=== PATIENT | female | born 1955 | race Caucasian/White ===

== ENCOUNTER 2017-03-05 07:29 | Day surgery (SDC) | payer BC ==
[2017-02-28 10:18] VITALS: BMI 40.4
[~2017-03-05 07:29] MED LIST: LACTATED RINGERS 1,000 ML IV SCH; LIDOCAINE 1% 20 ML VIAL (10MG/ML) FOR IV START INTRADERMA PRN
[2017-03-05 07:44] VITALS: TEMP 96.8
[2017-03-05] MEDS ORDERED: LIDOCAINE 1% INJ 10MG/ML (20 ML MDV) ONE (07:54)
[2017-03-05] MEDS ORDERED: PROPOFOL 10 MG/ML 20 ML VIAL IV ONE (07:54)
[2017-03-05 08:24] VITALS: RESP 16
--- NOTE | 2017-03-05 08:24 | P.OP ---
Date of Procedure: 03/05/17 Preoperative Diagnosis: Screening colonoscopy prior polyp Postoperative Diagnosis: Moderate sigmoid diverticuli, internal hemorrhoids, external anterior hemorrhoid Procedure(s) Performed: Colonoscopy Anesthesia: MAC Surgeon: Leslie Hernandez Estimated Blood Loss (ml): 0 IV fluids (ml): 500 Pathology: none sent Condition: stable Disposition: PACU Indications for Procedure: Screening colonoscopy last scope 2009 Operative Findings: Moderate sigmoid diverticuli, internal hemorrhoids, external anterior hemorrhoidal complex Description of Procedure: Patient was taken to the endoscopy suite and following sedation rectal exam was performed. Patient was noted to have good sphincter tone and anterior external hemorrhoid complex. Colonoscope was passed through the anus into the rectum. It was passed through the sigmoid colon up to the splenic flexure. It was passed through the transverse colon, hepatic flexure, right colon down to the area of the cecum. Circumferential observation of the mucosa did not reveal any specific lesions of concern. A questionable small mucosal polyp was identified in the area of the cecum but was not seen again. No further lesions of concern were noted in the right colon or the transverse colon. No lesions of concern in the left colon. Moderate sigmoid diverticuli noted in the sigmoid colon. Scope was brought down into the rectum where it was retroflexed. Internal hemorrhoids identified. As the scope was withdrawn no other lesions of concern were identified. Approximately 6 minutes were taken to withdraw the scope from the area of the cecum to the rectum. Impression/plan: 1. Moderate sigmoid diverticuli 2. Internal hemorrhoids 3. Anterior external skin tag 4. Questionable small mucosal change in the cecum questionable suction change Plan: 1. Conservative management of diverticuli and hemorrhoids 2. Repeat scope in 3-5 years to follow cecal area
--- NOTE | 2017-03-05 08:25 | P.DS ---
Providers Attending physician: Leslie Hernandez Primary care physician: Callum Mckay Plan - Discharge Summary Discharge Medication List Albuterol Sulfate [Ventolin HFA] 2 puff INHALATION Q6HR PRN 02/28/17 [History] Montelukast [Singulair] 10 mg PO DAILY 02/28/17 [History] Olopatadine HCl [Patanol] 1 drop BOTH EYES DAILY PRN 02/28/17 [History] Activity/Diet/Wound Care/Special Instructions: diverticular diet Discharge Disposition: HOME SELF-CARE
[2017-03-05 08:54] VITALS: BP 142/77; PULSE 80
== END 2017-03-05 09:41 | disposition home or self-care (01) ==
LOC: ORWHC2ENDO 07:29
PROVIDERS: ATTEND Surgery
DX: Z12.11 Encounter for screening for malignant neoplasm of colon (principal); Z86.010 Personal history of colon polyps; K57.30 Diverticulosis of large intestine without perforation or abscess without bleeding; K64.8 Other hemorrhoids; K64.4 Residual hemorrhoidal skin tags; J45.909 Unspecified asthma, uncomplicated; Z79.899 Other long term (current) drug therapy; Z88.1 Allergy status to other antibiotic agents; Z88.5 Allergy status to narcotic agent; Z88.0 Allergy status to penicillin; Z88.2 Allergy status to sulfonamides; Z88.8 Allergy status to other drugs, medicaments and biological substances
CPT/HCPCS: J2001; J2704; G0105

== ENCOUNTER → 2017-03-06 | Outpatient (CLI) | payer BC | END | disposition home or self-care (01) | LOC: CPPFTMAIN 13:28 | PROVIDERS: ATTEND Family Medicine | DX: J98.8 Other specified respiratory disorders (principal) | CPT/HCPCS: 94060; 94726; 94729 ==

== ENCOUNTER → 2017-06-20 | Outpatient (CLI) | payer BC ==
--- NOTE | 2017-06-20 10:22 | US ---
EXAMINATION TYPE: US venous doppler duplex LE RT DATE OF EXAM: 06/20/2017 9:47 AM COMPARISON: Prior bilateral lower extremity venous ultrasound November 10, 2014 CLINICAL HISTORY: M79.661 Pain in right lower leg. no prev dvt SIDE PERFORMED: right TECHNIQUE: The lower extremity deep venous system is examined utilizing real time linear array sonog treasure with graded compression, doppler sonography and color-flow sonography. VESSELS IMAGED: External Iliac Vein (EIV) Common Femoral Vein Deep Femoral Vein Femoral Vein Popliteal Vein Proximal Calf Veins Grayscale, color doppler, spectral doppler imaging performed of the deep veins of the right lower ext remity. There is normal flow, compressibility, vascular waveforms. Right Leg: neg for DVT Results called to Ibis in the office at the time of the exam. IMPRESSION: No ultrasound evidence for acute DVT in the right lower extremity.
== END | disposition home or self-care (01) ==
LOC: RADUSWWP 09:34
PROVIDERS: ATTEND Family Medicine
DX: M79.661 Pain in right lower leg (principal)

== ENCOUNTER 2018-03-25 12:02 | Emergency (ER) | payer BC ==
[2018-03-25] MEDS ORDERED: IPRATROPIUM 0.5 MG/2.5 ML NEBU INHALATION STA (12:41)
[2018-03-25] MEDS ORDERED: DEXAMETHASONE SOD PHOSPHATE 10 MG/ML 1 ML VIAL IV STA (12:41)
[2018-03-25] MEDS ORDERED: ALBUTEROL NEBULIZED 2.5 MG/3 ML INHALATION STA (12:41)
--- NOTE | 2018-03-25 13:03 | ED ---
General Adult HPI - General Chief complaint: Upper Respiratory Infection Stated complaint: SOB & ankle pain Time Seen by Provider: 03/25/18 12:35 Source: patient, RN notes reviewed Mode of arrival: ambulatory Limitations: no limitations - History of Present Illness Initial comments: 62-year-old female presenting for evaluation of cough for the past 2 weeks. Patient has had nasal congestion. She has had intermittent fevers and chills. T-max at home was 100. Symptoms have been progressive over the past 2 weeks. She did note that she has been dealing with URI symptoms for the past one month but this course seems to be approximately 2 weeks in length. She was given albuterol and Levaquin by her primary care physician. She has completed her course of Levaquin. Denies chest pain. She states she some mild dyspnea associated with her cough. Cough is productive of white sputum. No abdominal pain. No nausea vomiting. No orthopnea, no PND. - Related Data Home Medications Medication Instructions Recorded Confirmed Albuterol Sulfate [Ventolin HFA] 2 puff INHALATION RT-QID PRN 02/28/17 03/25/18 Montelukast [Singulair] 10 mg PO DAILY 02/28/17 03/25/18 Olopatadine HCl [Patanol] 1 drop BOTH EYES BID PRN 02/28/17 03/25/18 Azelastine HCl 2 sprays EA NOSTRIL BID 03/25/18 03/25/18 Ipratropium-Albuterol Nebulize 3 ml INHALATION RT-QID 03/25/18 03/25/18 [Duoneb 0.5 mg-3 mg/3 ml Soln] Previous Rx's Medication Instructions Recorded Doxycycline Monohydrate [Monodox] 100 mg PO Q12HR #20 cap 03/25/18 methylPREDNISolone Dose Pack 4 mg PO DIRECTED #21 package 03/25/18 [Medrol Dose Pack] Allergies Allergy/AdvReac Type Severity Reaction Status Date / Time aspirin Allergy Unknown Rash/Hives Verified 03/25/18 13:16 azithromycin Allergy Unknown Rash/Hives Verified 03/25/18 13:16 [From Zithromax Z-Shawn] codeine Allergy Unknown Rash/Hives/ Verified 03/25/18 13:16 NAUSEA,VOMI TING erythromycin base Allergy Unknown Rash/Hives Verified 03/25/18 13:16 [From E-Mycin] meperidine HCl [From Demerol] Allergy Unknown Rash/Hives Verified 03/25/18 13:16 Penicillins Allergy Unknown Rash/Hives Verified 03/25/18 13:16 ibuprofen Allergy Rash/Hives Verified 03/25/18 13:16 Sulfa (Sulfonamide Allergy Rash/Hives Verified 03/25/18 13:16 Antibiotics) hydrocodone bitartrate AdvReac Unknown Rash/Hives Verified 03/25/18 13:16 [From Vicodin] Review of Systems ROS Statement: Those systems with pertinent positive or pertinent negative responses have been documented in the HPI. ROS Other: All systems not noted in ROS Statement are negative. Past Medical History Past Medical History: Asthma Additional Past Medical History / Comment(s): SEASONAL ALLERGIES, CURRENT NASAL CONGESTION, HX OF COLON POLYP History of Any Multi-Drug Resistant Organisms: None Reported Past Surgical History: Hernia Repair, Joint Replacement, Orthopedic Surgery Additional Past Surgical History / Comment(s): ABDOMINAL HERNIA REPAIR X2, RT KNEE ARTHROSCOPY, RIGHT KNEE PARTIAL REPLACEMENT, LEFT TOTAL KNEE REPLACEMENT Past Anesthesia/Blood Transfusion Reactions: Previous Problems w/ Anesthesia Additional Past Anesthesia/Blood Transfusion Reaction / Comment(s): STATES HAD ISSUES WITH LOW B/P X2 AFTER KNEE SX Past Psychological History: No Psychological Hx Reported Smoking Status: Never smoker Past Alcohol Use History: None Reported Past Drug Use History: None Reported - Past Family History Mother Family Medical History: Unable to Obtain Additional Family Medical History / Comment(s): PATIENT ADOPTED General Exam Limitations: no limitations General appearance: alert, in no apparent distress Head exam: Present: atraumatic, normocephalic Eye exam: Present: normal appearance, PERRL ENT exam: Absent: normal exam (Nasal congestion, rhinorrhea) Neck exam: Present: normal inspection. Absent: tenderness, meningismus Respiratory exam: Present: wheezes, rhonchi. Absent: respiratory distress Cardiovascular Exam: Present: regular rate, normal rhythm GI/Abdominal exam: Present: soft. Absent: distended, tenderness Extremities exam: Present: pedal edema (Right lower extremity pedal edema). Absent: calf tenderness Neurological exam: Present: alert, oriented X3, CN II-XII intact. Absent: motor sensory deficit Psychiatric exam: Present: normal affect, normal mood Skin exam: Present: warm, dry, intact. Absent: cyanosis, diaphoretic Course Vital Signs 03/25/18 03/25/18 03/25/18 12:26 12:49 12:53 Temperature 98.7 F Pulse Rate 81 104 H Respiratory 18 20 Rate Blood Pressure 128/79 O2 Sat by Pulse 98 Oximetry 03/25/18 03/25/18 03/25/18 13:15 13:20 14:21 Temperature 98.6 F Pulse Rate 111 H 90 105 H Respiratory 18 18 Rate Blood Pressure 135/85 106/62 O2 Sat by Pulse 99 96 Oximetry Medical Decision Making - Medical Decision Making 62-year-old female with 2 weeks of cough and congestion. Patient's symptoms do sound infectious, however she was complaining of right lower extremity swelling , ultrasound was obtained this is negative for DVT, as well as laboratory studies obtained including CBC which is unremarkable normal white blood cell count stable hemoglobin, negative BNP and troponin, CMP is within normal limits influenza is negative. Chest x-ray negative for focal pneumonia. Patient's symptoms related to bronchitis. She will be started on azithromycin and a short course of steroids. Follow-up with primary care physician return with worsening symptoms. - Lab Data Result diagrams: 03/25/18 12:55 03/25/18 12:55 Lab Results 03/25/18 03/25/18 03/25/18 Range/Units 12:55 12:55 12:55 WBC 7.9 (3.8-10.6) k/uL RBC 4.99 (3.80-5.40) m/uL Hgb 14.9 (11.4-16.0) gm/dL Hct 43.5 (34.0-46.0) % MCV 87.1 (80.0-100.0) fL MCH 29.8 (25.0-35.0) pg MCHC 34.2 (31.0-37.0) g/dL RDW 13.4 (11.5-15.5) % Plt Count 323 (150-450) k/uL Neutrophils % 60 % Lymphocytes % 22 % Monocytes % 8 % Eosinophils % 7 % Basophils % 0 % Neutrophils # 4.7 (1.3-7.7) k/uL Lymphocytes # 1.7 (1.0-4.8) k/uL Monocytes # 0.6 (0-1.0) k/uL Eosinophils # 0.5 (0-0.7) k/uL Basophils # 0.0 (0-0.2) k/uL PT (9.0-12.0) sec INR (<1.2) APTT (22.0-30.0) sec Sodium 140 (137-145) mmol/L Potassium 4.3 (3.5-5.1) mmol/L Chloride 103 (98-107) mmol/L Carbon Dioxide 25 (22-30) mmol/L Anion Gap 12 mmol/L BUN 13 (7-17) mg/dL Creatinine 0.47 L (0.52-1.04) mg/dL Est GFR (CKD-EPI)AfAm >90 (>60 ml/min/1.73 sqM) Est GFR (CKD-EPI)NonAf >90 (>60 ml/min/1.73 sqM) Glucose 100 H (74-99) mg/dL Calcium 9.1 (8.4-10.2) mg/dL Magnesium 2.0 (1.6-2.3) mg/dL Total Bilirubin 0.6 (0.2-1.3) mg/dL AST 20 (14-36) U/L ALT 30 (9-52) U/L Alkaline Phosphatase 128 H (38-126) U/L Troponin I (0.000-0.034) ng/mL NT-Pro-B Natriuret Pep 45 pg/mL Total Protein 6.7 (6.3-8.2) g/dL Albumin 3.9 (3.5-5.0) g/dL Influenza Type A RNA (Not Detectd) Influenza Type B (PCR) (Not Detectd) 03/25/18 03/25/18 03/25/18 Range/Units 12:55 12:55 13:15 WBC (3.8-10.6) k/uL RBC (3.80-5.40) m/uL Hgb (11.4-16.0) gm/dL Hct (34.0-46.0) % MCV (80.0-100.0) fL MCH (25.0-35.0) pg MCHC (31.0-37.0) g/dL RDW (11.5-15.5) % Plt Count (150-450) k/uL Neutrophils % % Lymphocytes % % Monocytes % % Eosinophils % % Basophils % % Neutrophils # (1.3-7.7) k/uL Lymphocytes # (1.0-4.8) k/uL Monocytes # (0-1.0) k/uL Eosinophils # (0-0.7) k/uL Basophils # (0-0.2) k/uL PT 9.7 (9.0-12.0) sec INR 1.0 (<1.2) APTT 22.7 (22.0-30.0) sec Sodium (137-145) mmol/L Potassium (3.5-5.1) mmol/L Chloride (98-107) mmol/L Carbon Dioxide (22-30) mmol/L Anion Gap mmol/L BUN (7-17) mg/dL Creatinine (0.52-1.04) mg/dL Est GFR (CKD-EPI)AfAm (>60 ml/min/1.73 sqM) Est GFR (CKD-EPI)NonAf (>60 ml/min/1.73 sqM) Glucose (74-99) mg/dL Calcium (8.4-10.2) mg/dL Magnesium (1.6-2.3) mg/dL Total Bilirubin (0.2-1.3) mg/dL AST (14-36) U/L ALT (9-52) U/L Alkaline Phosphatase (38-126) U/L Troponin I <0.012 (0.000-0.034) ng/mL NT-Pro-B Natriuret Pep pg/mL Total Protein (6.3-8.2) g/dL Albumin (3.5-5.0) g/dL Influenza Type A RNA Not Detected (Not Detectd) Influenza Type B (PCR) Not Detected (Not Detectd) Disposition Clinical Impression: Bronchitis Disposition: HOME SELF-CARE Condition: Fair Instructions: Upper Respiratory Infection (ED), Acute Bronchitis (ED) Prescriptions: Doxycycline Monohydrate [Monodox] 100 mg PO Q12HR #20 cap methylPREDNISolone Dose Pack [Medrol Dose Pack] 4 mg PO DIRECTED #21 package Is patient prescribed a controlled substance at d/c from ED?: No Referrals: Guerline Kelly MD [Primary Care Provider] - 1-2 days Time of Disposition: 14:25
[2018-03-25 13:12] LABS: Basophils % (A) 0 %; Eosinophils # (A) 0.5 k/uL (0-0.7); Eosinophils % (A) 7 %; HCT 43.5 % (34.0-46.0); HGB 14.9 gm/dL (11.4-16.0); Lymphocytes # (A) 1.7 k/uL (1.0-4.8); Lymphocytes % (A) 22 %; MCH 29.8 pg (25.0-35.0); MCHC 34.2 g/dL (31.0-37.0); MCV 87.1 fL (80.0-100.0); Mean Platelet Volume 6.3; Monocytes # (A) 0.6 k/uL (0-1.0); Monocytes % (A) 8 %; Neutrophils # (A) 4.7 k/uL (1.3-7.7); Neutrophils % (A) 60 %; Platelet Count 323 k/uL (150-450); RBC 4.99 m/uL (3.80-5.40); RDW 13.4 % (11.5-15.5); WBC 7.9 k/uL (3.8-10.6)
[2018-03-25 13:20] VITALS: RESP 18
[2018-03-25 13:20] LABS: Partial Thromboplastin Time 22.7 sec (22.0-30.0); Prothrombin Time 9.7 sec (9.0-12.0)
[2018-03-25 13:23] LABS: ALT 30 U/L (9-52); AST 20 U/L (14-36); Albumin 3.9 g/dL (3.5-5.0); Alkaline Phosphatase 128 U/L (38-126); Anion Gap 12 mmol/L; Blood Urea Nitrogen 13 mg/dL (7-17); Calcium 9.1 mg/dL (8.4-10.2); Carbon Dioxide 25 mmol/L (22-30); Chloride 103 mmol/L (98-107); Glucose 100 mg/dL (74-99); Potassium 4.3 mmol/L (3.5-5.1); Sodium 140 mmol/L (137-145); Total Bilirubin 0.6 mg/dL (0.2-1.3); Total Protein 6.7 g/dL (6.3-8.2)
--- NOTE | 2018-03-25 13:32 | XR ---
EXAMINATION TYPE: XR chest 2V DATE OF EXAM: 03/25/2018 COMPARISON: Chest x-ray October 15, 2016 HISTORY: Shortness of breath and congestion for one week. TECHNIQUE: Frontal and lateral views of the chest are obtained. FINDINGS: There is some chronic parenchymal change without focal air space opacity, pleural effusion , or pneumothorax seen. The cardiac silhouette size is within normal limits. The osseous structure s are intact. Cholecystectomy clips are seen on lateral view. Additional surgical clip projects over the lateral right breast on frontal view. IMPRESSION: No acute cardiopulmonary process. No significant change from prior.
--- NOTE | 2018-03-25 14:06 | US ---
EXAMINATION TYPE: US venous doppler duplex LE RT DATE OF EXAM: 03/25/2018 1:59 PM COMPARISON: US right lower extremity June 20, 2017 CLINICAL HISTORY: Pain. Rt foot and ankle pain and swelling x 2 days SIDE PERFORMED: Right TECHNIQUE: The lower extremity deep venous system is examined utilizing real time linear array sonog treasure with graded compression, doppler sonography and color-flow sonography. VESSELS IMAGED: Common Femoral Vein Deep Femoral Vein Greater Saphenous Vein * Femoral Vein Popliteal Vein Small Saphenous Vein * Proximal Calf Veins (* superficial vessels) Right Leg: Negative for DVT Grayscale, color doppler, spectral doppler imaging performed of the deep veins of the right lower ext remity. There is normal flow, compressibility, vascular waveforms. IMPRESSION: No ultrasound evidence for acute DVT in the right lower extremity. No significant change from prior study.
[2018-03-25 14:24] VITALS: BP 106/62; PULSE 105; TEMP 98.6
== END 2018-03-25 14:32 | disposition home or self-care (01) ==
LOC: EC 12:02
DX: J45.909 Unspecified asthma, uncomplicated (principal); Z79.899 Other long term (current) drug therapy; Z88.5 Allergy status to narcotic agent; Z88.1 Allergy status to other antibiotic agents; Z88.6 Allergy status to analgesic agent; Z88.0 Allergy status to penicillin; Z88.2 Allergy status to sulfonamides; Z96.653 Presence of artificial knee joint, bilateral
CPT/HCPCS: 36415; 94640; 83880; 80053; 83735; 84484; 85025; 85610; 85730; 87502; 71046; 93971; 99284; 96374; J1100

== ENCOUNTER → 2018-03-26 | Outpatient (CLI) | payer BC ==
[2018-03-27 13:30] LABS: Beef IgE <0.35 kU/L (<0.35); Beef IgE Class CLASS 0; Chicken IgE Class CLASS 0; Cow's Milk IgE Class CLASS III; Egg White IgE 1.09 kU/L (<0.35); Peanut IgE <0.35 kU/L (<0.35); Pork IgE Class CLASS 0; Potato IgE <0.35 kU/L (<0.35); Potato IgE Class CLASS 0; Soybean IgE <0.35 kU/L (<0.35); Yeast Bakers/Brew IgE 1.85 kU/L (<0.35)
[2018-03-29 12:00] LABS: Corn IgG 14.3 mcg/mL (< 2.0); Potato IgG 2.1 mcg/mL (< 2.0); Soybean IgG 2.6 mcg/mL (< 2.0); Tomato IgG 3.7 mcg/mL (< 2.0)
[2018-03-29 12:01] LABS: Beef IgG 15.3 mcg/mL (< 2.0); Chicken Meat IgG < 2.0 mcg/mL (< 2.0); Pork IgG 4.8 mcg/mL (< 2.0)
== END | disposition home or self-care (01) ==
LOC: LABWHC1 11:10
PROVIDERS: ATTEND Otolaryngology
DX: J30.89 Other allergic rhinitis (principal)
CPT/HCPCS: 36415; 86001; 86003

== ENCOUNTER → 2018-05-14 | Outpatient (CLI) | payer BC ==
[2018-05-15 13:14] LABS: Crab IgE <0.35 kU/L (<0.35); Crab IgE Class CLASS 0; Salmon IgE 0.85 kU/L (<0.35); Salmon IgE Class CLASS II
[2018-05-15 13:15] LABS: Lobster IgE <0.35 kU/L (<0.35); Lobster IgE Class CLASS 0
== END | disposition home or self-care (01) ==
LOC: LABWHC1 16:43
PROVIDERS: ATTEND Otolaryngology
DX: L50.0 Allergic urticaria (principal)
CPT/HCPCS: 36415; 86003

== ENCOUNTER → 2018-06-16 | Outpatient (CLI) | payer BC ==
--- NOTE | 2018-06-16 10:17 | ECHOF ---
Referral Reason:R60.9 Edema MEASUREMENTS -------- HEIGHT: 127.0 cm WEIGHT: 104.3 kg BP: RVIDd: 2.4 cm (< 3.3) IVSd: 0.9 cm (0.6 - 1.1) LVIDd: 4.9 cm (3.9 - 5.3) LVPWd: 1.0 cm (0.6 - 1.1) IVSs: 1.8 cm LVIDs: 2.5 cm LVPWs: 2.1 cm LAESV Index (A-L): 22.72 ml/m Ao Diam: 3.2 cm (2.0 - 3.7) AV Cusp: 2.2 cm (1.5 - 2.6) LA Diam: 3.7 cm (2.7 - 3.8) MV EXCURSION: 22.560 mm (> 18.000) MV EF SLOPE: 115 mm/s (70 - 150) EPSS: 0.9 cm MV E Lamonte: 0.54 m/s MV DecT: 127 ms MV A Lamonte: 0.73 m/s MV E/A Ratio: 0.74 RAP: 5.00 mmHg RVSP: 15.01 mmHg FINDINGS -------- Sinus rhythm. This was a technically adequate study. The left ventricular size is normal. Left ventricular wall thickness is normal. Overall left vent ricular systolic function is low-normal with, an EF between 50 - 55 %. The right ventricle is normal in size and function. The left atrium is normal in size. The right atrium is normal in size. The aortic valve is trileaflet, and appears structurally normal. No aortic stenosis or regurgitation. The mitral valve leaflets are mildly thickened. There is trace mitral regurgitation. Trace tricuspid regurgitation present. The right ventricular systolic pressure, as measured by Dopp ler, is 15.01mmHg. Pulmonic valve appears structurally normal. The aortic root size is normal. The pericardium is normal. CONCLUSIONS -------- 1. Sinus rhythm. 2. This was a technically adequate study. 3. The left ventricular size is normal. 4. Left ventricular wall thickness is normal. 5. Overall left ventricular systolic function is low-normal with, an EF between 50 - 55 %. 6. The right ventricle is normal in size and function. 7. The left atrium is normal in size. 8. The right atrium is normal in size. 9. The aortic valve is trileaflet, and appears structurally normal. No aortic stenosis or regurgitati on. 10. The mitral valve leaflets are mildly thickened. 11. There is trace mitral regurgitation. 12. Trace tricuspid regurgitation present. 13. The right ventricular systolic pressure, as measured by Doppler, is 15.01mmHg. 14. Pulmonic valve appears structurally normal. 15. The aortic root size is normal. 16. The pericardium is normal. COMMUNITY RESOURCE OFFICER: Dawn Sol RDCS
== END | disposition home or self-care (01) ==
LOC: RADECHMAIN 08:22
PROVIDERS: ATTEND Family Medicine
DX: I05.8 Other rheumatic mitral valve diseases (principal)
CPT/HCPCS: 93306

== ENCOUNTER → 2018-07-08 | Outpatient (CLI) | payer BC ==
[2018-07-08 15:14] LABS: Basophils # (A) 0.1 k/uL (0-0.2); Basophils % (A) 1 %; Eosinophils # (A) 0.4 k/uL (0-0.7); Eosinophils % (A) 5 %; HCT 45.8 % (34.0-46.0); HGB 14.7 gm/dL (11.4-16.0); Lymphocytes # (A) 1.7 k/uL (1.0-4.8); Lymphocytes % (A) 20 %; MCH 27.7 pg (25.0-35.0); MCHC 32.1 g/dL (31.0-37.0); MCV 86.3 fL (80.0-100.0); Mean Platelet Volume 6.3; Monocytes # (A) 0.5 k/uL (0-1.0); Monocytes % (A) 5 %; Neutrophils # (A) 5.7 k/uL (1.3-7.7); Neutrophils % (A) 67 %; Platelet Count 375 k/uL (150-450); RBC 5.31 m/uL (3.80-5.40); RDW 13.7 % (11.5-15.5); WBC 8.5 k/uL (3.8-10.6)
[2018-07-08 15:41] LABS: ALT 43 U/L (9-52); AST 29 U/L (14-36); Alkaline Phosphatase 99 U/L (38-126); Anion Gap 7 mmol/L; Blood Urea Nitrogen 12 mg/dL (7-17); Calcium 9.3 mg/dL (8.4-10.2); Carbon Dioxide 30 mmol/L (22-30); Chloride 103 mmol/L (98-107); Cholesterol 184 mg/dL (<200); Glucose 91 mg/dL (74-99); HDL Cholesterol 41 mg/dL (40-60); LDL Cholesterol,Calculated 120 mg/dL (0-99); Potassium 4.2 mmol/L (3.5-5.1); Sodium 140 mmol/L (137-145); Total Bilirubin 0.4 mg/dL (0.2-1.3); Total Protein 7.2 g/dL (6.3-8.2); Triglycerides 113 mg/dL (<150)
== END | disposition home or self-care (01) ==
LOC: LABWHC1 14:40
PROVIDERS: ATTEND Family Medicine
DX: R60.9 Edema, unspecified (principal); Z13.220 Encounter for screening for lipoid disorders; Z13.228 Encounter for screening for other metabolic disorders; Z13.0 Encounter for screening for diseases of the blood and blood-forming organs and certain disorders involving the immune mechanism; Z13.29 Encounter for screening for other suspected endocrine disorder
CPT/HCPCS: 36415; 80053; 80061; 83880; 84443; 85025

== ENCOUNTER → 2018-07-17 | Outpatient (CLI) | payer BC ==
--- NOTE | 2018-07-17 11:54 | BD ---
EXAMINATION TYPE: Axial Bone Density DATE OF EXAM: 07/17/2018 COMPARISON: NONE CLINICAL HISTORY: Height: 4 ft 10 in Weight: 236 FRAX RISK QUESTIONS: RISK FACTORS HISTORY OF: Active: yes Postmenopausal woman:AGE [age] MEDICATIONS: Additional Medications: ALLERGY EYE DROPS, MULTI VIT, Additional History: EXAM MEASUREMENTS: Bone mineral densitometry was performed using the [employer] System. Bone mineral density as measured about the Lumbar spine is: ----- L1-L4(G/cm2): 1.225 T Score Values are as follows: ----- L2: 0.3 ----- L3: 0.4 ----- L4: 0.2 ----- L1-L4: 0.4 FIRST TIME HERE Bone mineral density about the R hip (g/cm2): 0.790 Bone mineral density about the L hip (g/cm2): 0.810 T Score values are as follows: -----R Neck: -1.8 -----L Neck: -1.6 -----R Total: -1.0 -----L Total: -1.2 FIRST TIME HERE IMPRESSIONS: Osteopenia (T Score between -2.5 and -1). There is slightly increased risk of fracture and the patient may be considered for treatment. Re-Screen 2-5 years. NOTE: T-SCORE=SD OF THE YOUNG ADULT MEAN.
== END | disposition home or self-care (01) ==
LOC: RADBDWWP 10:59
PROVIDERS: ATTEND Family Medicine
DX: M85.88 Other specified disorders of bone density and structure, other site (principal); Z78.0 Asymptomatic menopausal state
CPT/HCPCS: 77080

== ENCOUNTER → 2018-08-18 | Outpatient (CLI) | payer BC ==
--- NOTE | 2018-08-18 15:49 | XR ---
EXAMINATION TYPE: XR ankle complete RT, XR foot complete RT DATE OF EXAM: 08/18/2018 CLINICAL HISTORY: Fall injury a few days ago with persistent pain laterally. TECHNIQUE: Frontal, lateral and oblique images of the right ankle and foot are obtained. COMPARISON: None. FINDINGS: There is no acute fracture evident in the right ankle. There is marked narrowing of the me dial aspect ankle mortise with lateral tilting. Severe diffuse subcutaneous edema is present. There is present plan is deformity. There is moderate size inferior calcaneal spur There is no acute fracture or dislocation evident in the right foot. There is marked flexion in distal third through fi fth toes. Mild narrowing first metatarsophalangeal joint is present. Mild subcutaneous edema seen at this level. IMPRESSION: There is no acute fracture or dislocation in the right ankle or foot. Ankle mortise asym metry is seen suggesting ligamentous tear or injury, age indeterminate. Correlate clinically. Severe diffuse subcutaneous edema in the right ankle is noted.
== END | disposition home or self-care (01) ==
LOC: LABWHC1 15:01
PROVIDERS: ATTEND Nurse Practitioner Family
DX: R93.7 Abnormal findings on diagnostic imaging of other parts of musculoskeletal system (principal); E66.01 Morbid (severe) obesity due to excess calories
CPT/HCPCS: 36415

== ENCOUNTER → 2019-01-22 | Outpatient (CLI) | payer BC ==
--- NOTE | 2019-01-22 14:09 | XR ---
EXAMINATION TYPE: XR ribs RT w pa chest xray DATE OF EXAM: 01/22/2019 CLINICAL HISTORY: Chest x-ray March 25, 2018. TECHNIQUE: Single frontal view of the chest is obtained. A frontal and oblique images of right-sided ribs are acquired. COMPARISON: None FINDINGS: There is chronic parenchymal change without suspicious focal air space opacity, pleural ef fusion, or pneumothorax seen. The cardiac silhouette size is within normal limits. The osseous str uctures are demineralized. Underlying scoliosis is present. Degenerative change bilateral glenohumera l joints is seen. Surgical clips overlie the right breast. Dedicated images of right-sided ribs show acute minimally displaced fractures involving right anterol ateral seventh and ninth ribs and likely eighth rib. Overlying soft tissue is unremarkable. IMPRESSION: 1. No acute pulmonary process. 2. Acute minimally displaced anterolateral right seventh and ninth fractures also presumed eighth rib fracture less well seen.
== END | disposition home or self-care (01) ==
LOC: RADXRMAIN 12:25
PROVIDERS: ATTEND Nurse Practitioner Family
DX: S22.41XA Multiple fractures of ribs, right side, initial encounter for closed fracture (principal)

== ENCOUNTER → 2019-07-14 | Outpatient (CLI) | payer BC ==
[2019-07-14 13:26] LABS: Basophils % (A) 1 %; Eosinophils # (A) 0.5 k/uL (0-0.7); Eosinophils % (A) 9 %; HCT 42.6 % (34.0-46.0); HGB 13.8 gm/dL (11.4-16.0); Lymphocytes # (A) 1.7 k/uL (1.0-4.8); Lymphocytes % (A) 26 %; MCH 28.6 pg (25.0-35.0); MCHC 32.4 g/dL (31.0-37.0); MCV 88.5 fL (80.0-100.0); Mean Platelet Volume 6.2; Monocytes # (A) 0.4 k/uL (0-1.0); Monocytes % (A) 7 %; Neutrophils # (A) 3.5 k/uL (1.3-7.7); Neutrophils % (A) 55 %; Platelet Count 390 k/uL (150-450); RBC 4.81 m/uL (3.80-5.40); RDW 13.7 % (11.5-15.5); WBC 6.4 k/uL (3.8-10.6)
[2019-07-14 21:26] LABS: ALT 19 U/L (8-44); AST 18 U/L (13-35); African American GFR (CKD) 120.2 (60.0-200.0); Albumin/Globulin Ratio 1.65 (1.60-3.17); Alkaline Phosphatase 115 U/L (41-126); C Reactive Protein <0.4 mg/dL (0.0-0.8); Carbon Dioxide 31.6 mmol/L (21.6-31.8); Chloride 107 mmol/L (96-109); Chol/HDL Ratio 3.59; Cholesterol 165 mg/dL (0-200); Globulin 2.3 g/dL (1.6-3.3); Glucose 82 mg/dL (70-110); LDL Cholesterol,Calculated 100.6 mg/dL (0.0-131.0); Non-African American GFR(CKD) 103.7 (60.0-200.0); Potassium 4.4 mmol/L (3.5-5.5); Sodium 144 mmol/L (135-145); Total Bilirubin 0.6 mg/dL (0.3-1.2); Total Protein 6.1 g/dL (6.2-8.2)
== END | disposition home or self-care (01) ==
LOC: LABWHC1 12:25
PROVIDERS: ATTEND Family Medicine
DX: Z13.220 Encounter for screening for lipoid disorders (principal); Z13.29 Encounter for screening for other suspected endocrine disorder; Z13.228 Encounter for screening for other metabolic disorders
CPT/HCPCS: 36415; 80053; 80061; 84443; 85025; 86140

== ENCOUNTER → 2019-08-12 | Outpatient (CLI) | payer BC ==
--- NOTE | 2019-08-12 10:18 | XR ---
EXAMINATION TYPE: XR chest 2V DATE OF EXAM: 08/12/2019 COMPARISON: 01/22/2019 INDICATION: Acute bronchitis TECHNIQUE: Frontal and lateral views of the chest are obtained. FINDINGS: The heart size is normal. The pulmonary vasculature is normal. The lungs are clear. IMPRESSION: 1. No acute pulmonary process.
== END | disposition home or self-care (01) ==
LOC: RADXRMAIN 09:36
PROVIDERS: ATTEND Family Medicine
DX: J20.8 Acute bronchitis due to other specified organisms (principal)
CPT/HCPCS: 71046

== ENCOUNTER → 2019-10-05 | Outpatient (CLI) | payer BC | END | disposition home or self-care (01) | LOC: LABWHC1 12:13 | PROVIDERS: ATTEND Internal Medicine | DX: E55.9 Vitamin D deficiency, unspecified (principal) | CPT/HCPCS: 36415; 82306 ==

== ENCOUNTER → 2019-12-03 | Outpatient (CLI) | payer BC ==
--- NOTE | 2019-12-03 15:11 | XR ---
EXAMINATION TYPE: XR chest 2V DATE OF EXAM: 12/03/2019 COMPARISON: 08/12/2019 HISTORY: Cough with history of asthma TECHNIQUE: Frontal and lateral views of the chest are obtained. FINDINGS: There is no focal air space opacity, pleural effusion, or pneumothorax seen. Increased ret rosternal airspace and be seen in COPD. Correlate with pulmonary function tests. The cardiac silhouet te size is within normal limits. The osseous structures are intact. Surgical clip is seen within th e right breast tissue. Degenerative change of the right shoulder is partially visualized. Dextroscoli osis of thoracolumbar junction is again seen. Mild multilevel degenerative change of the spine. Isabelle cystectomy clips are present. IMPRESSION: No acute cardiopulmonary process.
== END | disposition home or self-care (01) ==
LOC: RADXRMAIN 14:48
PROVIDERS: ATTEND Family Medicine
DX: R05 Cough (principal)
CPT/HCPCS: 71046

== ENCOUNTER → 2019-12-18 | Outpatient (CLI) | payer BC ==
[2019-12-18 13:09] LABS: Basophils % (A) 1 %; Eosinophils # (A) 0.3 k/uL (0-0.7); Eosinophils % (A) 5 %; HCT 41.8 % (34.0-46.0); HGB 13.5 gm/dL (11.4-16.0); Lymphocytes # (A) 1.4 k/uL (1.0-4.8); Lymphocytes % (A) 26 %; MCH 29.5 pg (25.0-35.0); MCHC 32.2 g/dL (31.0-37.0); MCV 91.4 fL (80.0-100.0); Mean Platelet Volume 6.8; Monocytes # (A) 0.4 k/uL (0-1.0); Monocytes % (A) 8 %; Neutrophils # (A) 3.1 k/uL (1.3-7.7); Neutrophils % (A) 58 %; Platelet Count 335 k/uL (150-450); RBC 4.57 m/uL (3.80-5.40); WBC 5.4 k/uL (3.8-10.6)
[2019-12-18 19:48] LABS: African American GFR (CKD) 113.2 (60.0-200.0); Albumin 3.8 g/dL (3.80-4.90); Albumin/Globulin Ratio 1.81 (1.60-3.17); Anion Gap 8.4 mmol/L (4.00-12.00); BUN/Creat Ratio 13.33 Ratio (12.00-20.00); Calcium 8.8 mg/dL (8.7-10.3); Carbon Dioxide 26.6 mmol/L (21.6-31.8); Globulin 2.1 g/dL (1.6-3.3); Non-African American GFR(CKD) 97.7 (60.0-200.0); Potassium 4.2 mmol/L (3.5-5.5); Total Bilirubin 0.3 mg/dL (0.3-1.2); Total Protein 5.9 g/dL (6.2-8.2)
[2019-12-18 20:23] LABS: EBV-EA (IgG) 6.5 AI; EBV-EBNA(IgG) 5.1 AI; EBV-VCA (IgG) >8.0 AI; EBV-VCA (IgM) 3.3 AI
== END | disposition home or self-care (01) ==
LOC: LABWHC1 11:38
PROVIDERS: ATTEND Family Medicine
DX: J45.40 Moderate persistent asthma, uncomplicated (principal)
CPT/HCPCS: 36415; 80053; 84443; 85025; 86663; 86664; 86665

== ENCOUNTER → 2020-04-08 | Outpatient (CLI) | payer BC | END | disposition home or self-care (01) | LOC: LABWHC1 15:34 | PROVIDERS: ATTEND Family Medicine | DX: U07.1 COVID-19 (principal) | CPT/HCPCS: 87635 ==

== ENCOUNTER → 2020-07-28 | Outpatient (CLI) | payer BC ==
[2020-07-28 15:03] LABS: Basophils % (A) 0 %; Eosinophils # (A) 0.6 k/uL (0-0.7); Eosinophils % (A) 9 %; HCT 44.7 % (34.0-46.0); HGB 14.7 gm/dL (11.4-16.0); Lymphocytes # (A) 1.8 k/uL (1.0-4.8); Lymphocytes % (A) 26 %; MCH 29.5 pg (25.0-35.0); MCV 89.4 fL (80.0-100.0); Mean Platelet Volume 6.6; Monocytes # (A) 0.5 k/uL (0-1.0); Monocytes % (A) 8 %; Neutrophils # (A) 3.9 k/uL (1.3-7.7); Neutrophils % (A) 56 %; Platelet Count 335 k/uL (150-450); RDW 13.4 % (11.5-15.5); WBC 7.1 k/uL (3.8-10.6)
[2020-07-28 19:13] LABS: African American GFR (CKD) 119.4 (60.0-200.0); Albumin 3.9 g/dL (3.80-4.90); Albumin/Globulin Ratio 1.56 (1.60-3.17); Anion Gap 5.9 mmol/L (4.00-12.00); Calcium 9.1 mg/dL (8.7-10.3); Carbon Dioxide 28.1 mmol/L (21.6-31.8); Chol/HDL Ratio 3.95; Globulin 2.5 g/dL (1.6-3.3); Potassium 4.3 mmol/L (3.5-5.5); Total Bilirubin 0.5 mg/dL (0.2-1.2); Total Protein 6.4 g/dL (6.2-8.2)
== END | disposition home or self-care (01) ==
LOC: LABWHC1 13:26
PROVIDERS: ATTEND Family Medicine
DX: Z13.9 Encounter for screening, unspecified (principal)
CPT/HCPCS: 36415; 80053; 80061; 82306; 84443; 85025

== ENCOUNTER → 2020-08-22 | Outpatient (CLI) | payer BC ==
--- NOTE | 2020-08-22 14:21 | BD ---
EXAMINATION TYPE: Axial Bone Density DATE OF EXAM: 08/22/2020 COMPARISON: 07.17.2018 CLINICAL HISTORY: 64 YR OLD FEMALE....ICD-10 CODE: Z78.0 POST MENOPAUSAL Height: 57.2 Weight: 221 FRAX RISK QUESTIONS: Glucocorticoids (More than 3mos): YES (Ex: prednisone, prednisolone, methylprednisolone, dexamethasone, and hydrocortisone). History of Fracture in Adulthood: YES RISK FACTORS HISTORY OF: HX OF 6 RIB FXS, 2019, AT 63 YRS OLD Postmenopausal woman: YES, AT AGE 56 YRS OLD Lost more than 2 inches in height since high school: YES Hyperparathyroidism: NO Adrenal Insufficiency: NO MEDICATIONS: Prednisone or other steroids: YES, FOR ASTHMA AND PREDNISONE FOR ALLERGIES How Long: FOR MANY YRS Additional Medications: VIT D SUPPLEMENTS.. Additional History: ASTHMA, ALLERGIES EXAM MEASUREMENTS: Bone mineral densitometry was performed using the [employer] System. Bone mineral density as measured about the Lumbar spine is: ----- L1-L4(G/cm2): 1.199 T Score Values are as follows: ----- L1: 0.8 ----- L2: 0.1 ----- L3: 0.3 ----- L4: -0.7 ----- L1-L4: 0.2 Bone mineral density has: Decreased -3.6% since study of: 07.17.2018 Bone mineral density about the R hip (g/cm2): 0.852 Bone mineral density about the L hip (g/cm2): 0.841 T Score values are as follows: -----R Neck: -1.8 -----L Neck: -1.7 -----R Total: -1.2 -----L Total: -1.3 Bone mineral density has: Decreased -2.6% since study of: 07.17.2018 FRAX%s: THERE IS A 21.2% CHANCE FOR A MAJOR OSTEOPOROTIC FX AND A 2.9% FOR HIP.....PROBABILITY FOR FX IN 10 YRS TIME IMPRESSION: Osteopenia (T Score between -2.5 and -1). There is slightly increased risk of fracture and the patient may be considered for treatment. Re-Screen 2-5 years. NOTE: T-SCORE=SD OF THE YOUNG ADULT MEAN.
== END | disposition home or self-care (01) ==
LOC: RADBDWWP 07:17
PROVIDERS: ATTEND Family Medicine
DX: M85.80 Other specified disorders of bone density and structure, unspecified site (principal); Z78.0 Asymptomatic menopausal state; M85.88 Other specified disorders of bone density and structure, other site
CPT/HCPCS: 77080

== ENCOUNTER → 2021-09-05 | Outpatient (CLI) | payer OTHER ==
[2021-09-06 08:45] LABS: Chol/HDL Ratio 3.89 Ratio; HDL Cholesterol 45.8 mg/dL (40.00-60.00); LDL Cholesterol,Calculated 113.1 mg/dL (0.0-131.0); Triglycerides 95.3 mg/dL (0.00-149.00); VLDL Calculation 19.06 mg/dL (5.00-40.00)
== END | disposition home or self-care (01) ==
LOC: LABWHC1 12:30
PROVIDERS: ATTEND Family Medicine
DX: Z13.220 Encounter for screening for lipoid disorders (principal)
CPT/HCPCS: 36415; 80061

== ENCOUNTER → 2021-09-15 | Outpatient (CLI) | payer OTHER | END | disposition home or self-care (01) | LOC: LABWHC1 08:34 | PROVIDERS: ATTEND Family Medicine | DX: U07.1 COVID-19 (principal) | CPT/HCPCS: 36415; 86769 ==

== ENCOUNTER 2021-11-16 19:01 | Emergency (ER) | payer BC ==
[2021-11-16 19:06] VITALS: BP 163/89; PULSE 89; RESP 18; TEMP 98.5
[2021-11-16] MEDS ORDERED: ACETAMINOPHEN TAB 325 MG TAB PO STA (19:58)
--- NOTE | 2021-11-16 20:13 | ED ---
General Adult HPI - General Chief complaint: Extremity Injury, Upper Stated complaint: arm pain Time Seen by Provider: 11/16/21 19:08 Source: patient, RN notes reviewed Mode of arrival: ambulatory Limitations: physical limitation - History of Present Illness Initial comments: 65-year-old female presents to the emergency Department with complaints of left upper extremity pain, onset 2 days prior to arrival. Patient states she first noticed the discomfort while carrying heavy rolls of wrapping paper. States she had to drop the wrapping paper and rest her arm in order to alleviate the discomfort. Also states the pain is worsened when raising her left arm up to shoulder level. Does complain of pain extending down the left arm and into the wrist. Patient denies any injury, trauma, neck pain, back pain, chest pain, shortness of breath, or difficulty breathing. Patient also complains of right ankle pain for the past few days as well. Pain is mildly worsened with ambulation and weightbearing. Again, patient denies injury or trauma; no history of gout or arthritis. - Related Data Home Medications Medication Instructions Recorded Confirmed Albuterol Sulfate [Ventolin HFA] 2 puff INHALATION RT-QID PRN 02/28/17 11/16/21 Cholecalciferol [Vitamin D3 (25 50 mcg PO Q48H 11/16/21 11/16/21 Mcg = 1000 Iu)] Vegan Multivitamin 1 tab PO DAILY 11/16/21 11/16/21 Allergies Allergy/AdvReac Type Severity Reaction Status Date / Time aspirin Allergy Unknown Rash/Hives Verified 11/16/21 19:55 azithromycin Allergy Unknown Rash/Hives Verified 11/16/21 19:55 [From Zithromax Z-Shawn] codeine Allergy Unknown Rash/Hives/ Verified 11/16/21 19:55 NAUSEA,VOMI TING erythromycin base Allergy Unknown Rash/Hives Verified 11/16/21 19:55 [From E-Mycin] meperidine HCl [From Demerol] Allergy Unknown Rash/Hives Verified 11/16/21 19:55 Penicillins Allergy Unknown Rash/Hives Verified 11/16/21 19:55 ibuprofen Allergy Rash/Hives Verified 11/16/21 19:55 Sulfa (Sulfonamide Allergy Rash/Hives Verified 11/16/21 19:55 Antibiotics) hydrocodone bitartrate AdvReac Unknown Rash/Hives Verified 11/16/21 19:55 [From Vicodin] Review of Systems ROS Statement: Those systems with pertinent positive or pertinent negative responses have been documented in the HPI. ROS Other: All systems not noted in ROS Statement are negative. Past Medical History Past Medical History: Asthma Additional Past Medical History / Comment(s): SEASONAL ALLERGIES, CURRENT NASAL CONGESTION, HX OF COLON POLYP History of Any Multi-Drug Resistant Organisms: None Reported Past Surgical History: Hernia Repair, Joint Replacement, Orthopedic Surgery Additional Past Surgical History / Comment(s): ABDOMINAL HERNIA REPAIR X2, RT KNEE ARTHROSCOPY, RIGHT KNEE PARTIAL REPLACEMENT, LEFT TOTAL KNEE REPLACEMENT Past Anesthesia/Blood Transfusion Reactions: Previous Problems w/ Anesthesia Additional Past Anesthesia/Blood Transfusion Reaction / Comment(s): STATES HAD ISSUES WITH LOW B/P X2 AFTER KNEE SX Past Psychological History: No Psychological Hx Reported Smoking Status: Never smoker Past Alcohol Use History: None Reported Past Drug Use History: None Reported - Past Family History Mother Family Medical History: Unable to Obtain Additional Family Medical History / Comment(s): PATIENT ADOPTED General Exam Limitations: physical limitation General appearance: alert, in no apparent distress, other (Well-developed, well- nourished female in no acute distress. Initial temperature 98.5, pulse 89, respirations 18, blood pressure 163/89, pulse ox 99% on room air.) Eye exam: Present: normal appearance, PERRL, EOMI. Absent: scleral icterus, conjunctival injection, periorbital swelling Neck exam: Present: normal inspection, full ROM. Absent: tenderness, meningismus, lymphadenopathy Respiratory exam: Present: normal lung sounds bilaterally. Absent: respiratory distress, wheezes, rales, rhonchi, stridor Cardiovascular Exam: Present: regular rate, normal rhythm, normal heart sounds. Absent: systolic murmur, diastolic murmur, rubs, gallop, clicks GI/Abdominal exam: Present: soft, normal bowel sounds. Absent: distended, tenderness, guarding, rebound, rigid Left General: Present: normal inspection Shoulder Exam: Present: tenderness over AC joint. Absent: full ROM, swelling, ecchymosis, deformity, crepitus, dislocation, erythema Upper Arm exam: Present: normal inspection, tenderness (Circumferential tenderness upon palpation of the left upper arm). Absent: laceration, ecchymosis, deformity, erythema Elbow exam: Present: normal inspection, full ROM. Absent: tenderness, swelling Forearm Wrist exam: Present: normal inspection, full ROM, tenderness (Tenderness upon palpation of the mid forearm). Absent: swelling, deformity, pain with axial thumb loading Hand Wrist exam: Present: normal inspection, full ROM Neuro motor exam: Present: thumb opposition intact, thumb IP flexion intact, thumb adduction intact, fingers 2-5 abduction intact Vascular: Present: normal capillary refill, radial pulse, brachial pulse, ulnar pulse. Absent: vascular compromise, Pallo Right Lower Leg exam: Present: normal inspection, full ROM. Absent: tenderness, swelling, erythema, Homans' sign Ankle exam: Present: normal inspection, full ROM. Absent: tenderness, swelling, deformity, erythema Foot/Toe exam: Present: normal inspection, full ROM. Absent: tenderness, swelling Neurovascular tendon exam: Present: no vascular compromise. Absent: pulse deficit, abnormal cap refill, motor deficit, sensory deficit Back exam: Present: normal inspection. Absent: CVA tenderness (R), CVA tenderness (L) Neurological exam: Present: alert, oriented X3, CN II-XII intact Psychiatric exam: Present: normal affect, normal mood Skin exam: Present: warm, dry, intact, normal color. Absent: rash Course Vital Signs 11/16/21 19:02 Temperature 98.5 F Pulse Rate 89 Respiratory 18 Rate Blood Pressure 163/89 O2 Sat by Pulse 99 Oximetry Medical Decision Making - Medical Decision Making 65-year-old female presents to the emergency department for evaluation of left arm pain and right ankle pain. Upon exam, patient is well-appearing and in no acute distress. Vital signs are stable. Physical exam findings are unremarkable. Patient denies chest pain. EKG was obtained showing normal sinus rhythm. X-rays of the right ankle and left shoulder were obtained and were unremarkable. Venous Doppler study of the left upper extremity was negative for DVT. Patient was given Tylenol with some improvement. Findings were discussed with patient; she is instructed to follow up with her PCP for further evaluation and treatment. Return parameters were discussed in detail. Patient verbalizes understanding and agrees with this plan. - EKG Data EKG shows normal: sinus rhythm Rate: normal EKG Comments: EKG was obtained at 1913 and shows normal sinus rhythm. Ventricular rate 84, UT interval 144, QRS duration 86, QT/QTC 384/453. Interpretation normal ECG. - Radiology Data Radiology results: report reviewed, image reviewed X-ray of the right ankle was obtained. Report was reviewed in its integrity. Impression per Dr. Warren is calcaneal spurring. No fracture seen. Mild ankle joint space narrowing. X-ray of the left shoulder was obtained. Report was reviewed in its entirety. 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 No fracture. Venous Doppler study of the left upper extremity was obtained. Report was reviewed in its entirety. Impression per Dr. Warren is no sign of deep vein thrombosis in the left arm. Disposition Clinical Impression: Ankle pain, right, Shoulder pain, left, Arm pain, left Disposition: HOME SELF-CARE Condition: Stable Instructions (If sedation given, give patient instructions): Arthralgia (ED), Arm Pain (ED) Additional Instructions: Gentle range of motion exercises. Rest as needed. May take Tylenol for discomfort. Follow up with your primary care provider for a recheck in the next few days. Return to the emergency department with any new, worsening, or concerning symptoms. Is patient prescribed a controlled substance at d/c from ED?: No Referrals: Guerline Kelly MD [Primary Care Provider] - 1-2 days
--- NOTE | 2021-11-16 20:19 | XR ---
EXAMINATION TYPE: XR ankle complete RT DATE OF EXAM: 11/16/2021 COMPARISON: NONE HISTORY: Ankle pain TECHNIQUE: 3 views FINDINGS: There is moderate plantar calcaneal spurring. Ankle mortise is anatomic. There is soft tiss ue swelling around the ankle. I see no fracture nor dislocation. There is some medial ankle joint spa ce narrowing. IMPRESSION: Calcaneal spurring. No fracture seen. Mild ankle joint space narrowing.
--- NOTE | 2021-11-16 20:20 | XR ---
EXAMINATION TYPE: XR shoulder complete LT DATE OF EXAM: 11/16/2021 COMPARISON: NONE HISTORY: Shoulder pain TECHNIQUE: 3 views FINDINGS: I see no fracture nor dislocation. There is mild narrowing of the shoulder joint space. Sca pula is intact. IMPRESSION: Mild osteoarthritis of the shoulder joint. No fracture.
--- NOTE | 2021-11-16 21:21 | US ---
EXAMINATION TYPE: US venous doppler duplex UE LT DATE OF EXAM: 11/16/2021 COMPARISON: NONE CLINICAL HISTORY: left arm pain. Left arm pain x 2 days. No hx of DVT. SIDE PERFORMED: Left Left Arm: No evidence of DVT in veins imaged at this time. IMPRESSION: No sign of deep vein thrombosis in the left arm.
== END 2021-11-16 21:59 | disposition home or self-care (01) ==
LOC: EC 19:01
DX: M25.512 Pain in left shoulder (principal); M79.602 Pain in left arm; M25.571 Pain in right ankle and joints of right foot; J45.909 Unspecified asthma, uncomplicated
CPT/HCPCS: 99284

== ENCOUNTER → 2022-06-19 | Outpatient (CLI) | payer MEDICARE ==
--- NOTE | 2022-06-19 14:31 | XR ---
EXAMINATION TYPE: XR chest 2V DATE OF EXAM: 06/19/2022 COMPARISON: 12/03/2019 TECHNIQUE: PA and lateral views submitted. HISTORY: Pain FINDINGS: The lungs are clear and there is no pneumothorax, pleural effusion, or focal pneumonia. Heart size normal measures a scoliosis of the spine. Postsurgical change overlying the right breast. Arthropathy of the right shoulder similar to prior exam. Hyperinflation suggests COPD. Degenerative change of th e spine. IMPRESSION: 1. No acute process.
== END | disposition home or self-care (01) ==
LOC: RADXRMAIN 14:04
PROVIDERS: ATTEND Family Medicine
DX: R07.89 Other chest pain (principal)
CPT/HCPCS: 71046

== ENCOUNTER → 2022-08-14 | Outpatient (CLI) | payer OTHER, MEDICARE ==
[2022-08-14 11:51] LABS: INR 0.9 (<1.2); Partial Thromboplastin Time 23.9 sec (22.0-30.0); Prothrombin Time 9.9 sec (9.0-12.0)
[2022-08-14 18:47] LABS: Basophils # (A) 0.05 X 10*3/uL (0.00-0.10); Basophils % (A) 0.7 %; Eosinophils # (A) 0.26 X 10*3/uL (0.04-0.35); Eosinophils % (A) 3.8 %; HCT 42.7 % (37.2-46.3); HGB 13.7 g/dL (12.0-15.0); Immature Grans, Automated 0.4 %; Lymphocytes # (A) 1.52 X 10*3/uL (0.90-5.00); MCH 29.5 pg (27.0-32.0); MCHC 32.1 g/dL (32.0-37.0); Mean Platelet Volume 8.7 fL (9.5-12.2); Monocytes # (A) 0.64 X 10*3/uL (0.20-1.00); Monocytes % (A) 9.2 %; NRBC Per 100 WBC 0 /100 WBCS (0.0-0.0); Neutrophils # (A) 4.42 X 10*3/uL (1.80-7.70); Neutrophils % (A) 63.9 %; Platelet Count 319 X 10*3/uL (140-440); RBC 4.64 X 10*6/uL (4.10-5.20); RDW 14.3 % (11.5-14.5); WBC 6.92 X 10*3/uL (4.50-10.00)
[2022-08-14 19:18] LABS: ALT 10 U/L (8-44); AST 18 U/L (13-35); African American GFR (CKD) 110.9 (60.0-200.0); Albumin 3.8 g/dL (3.8-4.9); Albumin/Globulin Ratio 1.19 (1.60-3.17); Alkaline Phosphatase 122 U/L (41-126); Blood Urea Nitrogen 12.3 mg/dL (9.0-27.0); Calcium 9.2 mg/dL (8.7-10.3); Carbon Dioxide 27.8 mmol/L (20.0-27.5); Chloride 103 mmol/L (96-109); Chol/HDL Ratio 3.45 Ratio; Globulin 3.2 g/dL (1.6-3.3); Glucose 105 mg/dL (70-110); LDL Cholesterol,Calculated 117.6 mg/dL (0.0-131.0); Non-African American GFR(CKD) 95.7 (60.0-200.0); Potassium 4.2 mmol/L (3.5-5.5); Sodium 139 mmol/L (135-145); VLDL Calculation 12.42 mg/dL (5.00-40.00)
== END | disposition home or self-care (01) ==
LOC: LABWHC1 10:47
PROVIDERS: ATTEND Family Medicine
DX: Z01.812 Encounter for preprocedural laboratory examination (principal); Z13.220 Encounter for screening for lipoid disorders; E55.9 Vitamin D deficiency, unspecified; M85.9 Disorder of bone density and structure, unspecified
CPT/HCPCS: 36415; 80053; 80061; 82306; 85025; 85610; 85730

== ENCOUNTER → 2022-09-20 | Outpatient (CLI) | payer OTHER, MEDICARE ==
--- NOTE | 2022-09-20 17:26 | BD ---
EXAMINATION TYPE: Axial Bone Density DATE OF EXAM: 09/20/2022 CLINICAL HISTORY: 66 years year old Female. ICD-10 CODE: M85.9 other bone disorder Height: 4 FT 10 IN Weight: 228 FRAX RISK QUESTIONS: Alcohol (3 or more units per day): NO Family History (Parent hip fracture): NO Glucocorticoids (More than 3mos): NO (Ex: prednisone, prednisolone, methylprednisolone, dexamethasone, and hydrocortisone). History of Fracture in Adulthood: YES Secondary Osteoporosis: 1. Type 1 Diabetes: NO 2. Hyperthyroidism: NO 3. Menopause before 45: NO 4. Malnutrition: NO 5. Chronic liver disease: NO Rheumatoid Arthritis: NO Current Tobacco Use: NO RISK FACTORS HISTORY OF: Surgery to Spine/Hip(right/left)/Wrist (right/left): NO Family History of Osteoporosis: NO Active: YES Diet low in dairy products/other sources of calcium: NO Postmenopausal woman: YES Take estrogen and/or progesterone medications: NO Lost more than 2 inches in height since high school: NO Frequent falls: NO Poor Health: GOOD Hyperparathyroidism: NO Adrenal Insufficiency: NO MEDICATIONS: Additional Medications: NONE Additional History: EXAM MEASUREMENTS: Bone mineral densitometry was performed using the [employer] System. Bone mineral density as measured about the Lumbar spine is: ----- L1-L4(G/cm2): 1.174 T Score Values are as follows: ----- L1: 0.4 ----- L2: -0.3 ----- L3: -0.1 ----- L4: -0.3 ----- L1-L4: -0.1 Bone mineral density has: DECREASED -1.3 % since of: 2019 Bone mineral density about the R hip (g/cm2): 0.802 Bone mineral density about the L hip (g/cm2): 0.797 T Score values are as follows: -----R Neck: -1.7 -----L Neck: -1.7 -----R Total: -1.3 -----L Total: -1.3 Bone mineral density has: DECREASED -0.6 % since study of: 2019 FRAX%s: The graph provided illustrates a 13.4 % chance for a major osteoporotic fx and a 1.6 % chance for the hips probability for fx in 10 years time. IMPRESSION: Osteopenia (T Score between -2.5 and -1). There is slightly increased risk of fracture and the patient may be considered for treatment. Re-Screen 2-5 years. NOTE: T-SCORE=SD OF THE YOUNG ADULT MEAN.
== END | disposition home or self-care (01) ==
LOC: RADBDWWP 12:55
PROVIDERS: ATTEND Family Medicine
DX: M85.89 Other specified disorders of bone density and structure, multiple sites (principal)
CPT/HCPCS: 77080

== ENCOUNTER → 2024-04-07 | Outpatient (CLI) | payer MEDICARE ==
[2024-04-08 02:46] LABS: Clam IgE <0.10 kU/L; Codfish IgE 5.42 kU/L; Egg White IgE 1.44 kU/L; Peanut IgE <0.10 kU/L; Scallop IgE <0.10 kU/L; Shrimp IgE <0.10 kU/L; Soybean IgE <0.10 kU/L
[2024-04-08 05:01] LABS: Alternaria alternata IgE 1.68 kU/L; Aspergillus fumagatus IgE 0.31 kU/L; Birch IgE <0.10 kU/L; Cat Epith & Dander IgE >100.00 kU/L; Cladosporian herbarum IgE 0.26 kU/L; Cockroach IgE <0.10 kU/L; Codfish IgE 5.74 kU/L; Maple (Box Elder) IgE 1.57 kU/L; Ragweed,Common IgE 4.06 kU/L; Shrimp IgE <0.10 kU/L
[2024-04-08 11:05] LABS: Beef IgE <0.10 kU/L (<0.10); Beef IgE Class CLASS 0; Crab IgE <0.10 kU/L (<0.10); Crab IgE Class CLASS 0; Pork IgE Class CLASS 0; Salmon IgE 0.73 kU/L (<0.10); Salmon IgE Class CLASS 2; Yeast Bakers/Brew IgE 0.72 kU/L (<0.10); Yeast Bakers/Brew IgE Class CLASS 2
[2024-04-08 11:06] LABS: Chicken IgE Class CLASS 0; Chocolate IgE Class CLASS 0; Egg Yolk IgE Class CLASS 1; Gluten IgE Class CLASS 0/1; Johnson Grass IgE Class CLASS 0; Lobster IgE <0.10 kU/L (<0.10); Lobster IgE Class CLASS 0; Oat IgE Class CLASS 0
[2024-04-08 11:07] LABS: Aureo. pullulans IgE 0.75 kU/L (<0.10); Aureo. pullulans IgE Class CLASS 2; Epicoccum purpurascens Class CLASS 1; Epicoccum purpurascens IgE 0.37 kU/L (<0.10); Mucor racemosus IgE <0.10 kU/L (<0.10); Mucor racemosus IgE Class CLASS 0; Rhizopus nigricans IgE <0.10 kU/L (<0.10); Rhizopus nigricans IgE Class CLASS 0; S.rostrata/Helminth Class CLASS 1; S.rostrata/Helminth IgE 0.41 kU/L (<0.10); Timothy Grass IgE <0.10 kU/L (<0.10); Timothy Grass IgE Class CLASS 0
[2024-04-08 11:08] LABS: Avocado Class CLASS 0; Banana IgE Class CLASS 0/1; Candida albicans IgE Class CLASS 2; Coffee IgE <0.10 kU/L (<0.10); Coffee IgE Class CLASS 0; Cottonwood IgE 0.13 kU/L (<0.10); Hazelnut IgE <0.10 kU/L (<0.10); Hazelnut IgE Class CLASS 0; Kiwi IgE <0.10 kU/L (<0.10); Kiwi IgE Class CLASS 0; Sycamore(Mpl.Lf) IgE <0.10 kU/L (<0.10); Sycamore(Mpl.Lf) IgE Class CLASS 0; Walnut Tree IgE 0.14 kU/L (<0.10); Walnut Tree IgE Class CLASS 0/1
[2024-04-08 11:09] LABS: Com. Pigweed IgE <0.10 kU/L (<0.10); Com. Pigweed IgE Class CLASS 0; English Plantain IgE Class CLASS 0; Lamb's Quarter IgE <0.10 kU/L (<0.10); Lamb's Quarter IgE Class CLASS 0; White Ash IgE Class CLASS 0
== END | disposition home or self-care (01) ==
LOC: LABWHC1 14:04
PROVIDERS: ATTEND Otolaryngology
DX: J30.89 Other allergic rhinitis (principal)
CPT/HCPCS: 36415; 82785; 86003

== ENCOUNTER → 2024-08-25 | Outpatient (CLI) | payer MEDICARE ==
--- NOTE | 2024-08-25 11:23 | BD ---
EXAMINATION TYPE: Axial Bone Density DATE OF EXAM: 08/25/2024 CLINICAL HISTORY: 68 years old Female. ICD-10 CODE: M85.88 DISORDER OF BONE Height: 57 Weight: 231.4 FRAX RISK QUESTIONS: Alcohol (3 or more units per day): no Family History (Parent hip fracture): no Glucocorticoids (More than 3mos): no (Ex: prednisone, prednisolone, methylprednisolone, dexamethasone, and hydrocortisone). History of Fracture in Adulthood: ribs Secondary Osteoporosis: 1. Type 1 Diabetes: no 2. Hyperthyroidism: no 3. Menopause before 45: no 4. Malnutrition: no 5. Chronic liver disease: no Rheumatoid Arthritis: no Current Tobacco Use: no RISK FACTORS HISTORY OF: Hip Fracture (Right/Left): no Spine Fracture: no History of Wrist Fracture: no Surgery to Spine/Hip(right/left)/Wrist (right/left): no MEDICATIONS: Thyroid Medications: no Osteoporosis Medications: no EXAM MEASUREMENTS: Bone mineral densitometry was performed using the [employer] System. Bone mineral density as measured about the Lumbar spine is: ----- L1-L4(G/cm2): 1.171 T Score Values are as follows: ----- L1: 0.7 ----- L2: -0.7 ----- L3: 0.3 ----- L4: -0.6 ----- L1-L4: -0.1 Z Score Values are as follows: ----- L1: 1.2 ----- L2: -0.2 ----- L3: 0.8 ----- L4: -0.2 ----- L1-L4: `0.4 Bone mineral density has: decreased -0.3 % since study of: 09/20/2022 Bone mineral density about the R hip (g/cm2): 0.842 Bone mineral density about the L hip (g/cm2): 0.867 T Score values are as follows: -----R Neck: -2.0 -----L Neck: -1.0 -----R Total: -1.3 -----L Total: -1.1 Z Score values are as follows: -----R Neck: -1.1 -----L Neck: -0.2 -----R Total: -0.8 -----L Total: -0.6 Bone mineral density has: increased 1.5 % since study of: 09/20/2022 FRAX%s: The graph provided illustrates a 14.7 % chance for a major osteoporotic fx and a 2.1% chance for the hips probability for fx in 10 years time. IMPRESSION: Osteopenia (T Score between -2.5 and -1). There is slightly increased risk of fracture and the patient may be considered for treatment. Re-Screen 2-5 years. NOTE: T-SCORE=SD OF THE YOUNG ADULT MEAN. [facility], , 08/25/2024 11:21 AM
--- NOTE | 2024-08-26 11:21 | MM ---
Reason for Exam: Screening (asymptomatic). Last mammogram was performed 1 year(s) and 1 month(s) ago. Patient History: Menarche at age 10. First Full-Term at age 22. Postmenopausal. Patient has history of breast feeding. Risk Values: Maribeth 5 year model risk: 1.7%. NCI Lifetime model risk: 5.7%. Prior Study Comparison: 05/08/2021 Bilateral MG 3D screening mammo w/cad, [facility]. 07/25/2022 Bilateral MG 3D screening mammo w/cad, [facility]. 08/23/2023 Bilateral MG 3D screening mammo w/cad, [facility]. Tissue Density: There are scattered areas of fibroglandular density. Findings: Analyzed By CAD. Right breast surgical clips. Right breast: There is no suspicious group of microcalcifications or new suspicious mass. Left breast: There is no suspicious group of microcalcifications or new suspicious mass. Overall Assessment: Negative, BI-RAD 1 Management: Screening Mammogram of both breasts in [address] [facility] will attempt to contact patient to return for supplemental views and ultrasound if indicated. Patient should continue monthly self-breast exams. A clinical breast exam by your physician is recommended on an annual basis. This exam should not preclude additional follow-up of suspicious palpable abnormalities. Note on Maribeth scores and lifetime risk: 1. A Maribeth score greater than 3% is considered moderate risk. If this is the case, consider specialist referral to assess eligibility for a risk reducing agent. 2. If overall lifetime risk for the development of breast cancer is 20% or higher, the patient may qualify for future screening with alternating mammogram and breast MRI. [facility], , 08/26/2024 11:12 AM. Electronically signed and approved by: Dale Jackson DO
== END | disposition home or self-care (01) ==
LOC: RADBDWWP 07:58
PROVIDERS: ATTEND Family Medicine
DX: Z12.31 Encounter for screening mammogram for malignant neoplasm of breast (principal); R92.323 Mammographic fibroglandular density, bilateral breasts; M85.89 Other specified disorders of bone density and structure, multiple sites; Z78.0 Asymptomatic menopausal state
CPT/HCPCS: 77063; 77067; 77080

== ENCOUNTER 2024-11-03 07:10 | Day surgery (SDC) | payer MEDICARE ==
[2024-10-30 12:20] VITALS: BMI 47.6
[2024-11-03] MEDS: IV FLUID CONTINUATION 1,000 ML IV ONE ×2 (07:51→09:00)
[2024-11-03] MEDS: LACTATED RINGERS 1,000 ML IV SCH (07:52)
[2024-11-03 07:54] VITALS: TEMP 97.8
[2024-11-03] MEDS ORDERED: PROPOFOL 10 MG/ML 20 ML VIAL IV ONE (09:01)
[2024-11-03] MEDS ORDERED: LIDOCAINE 1% INJ 10MG/ML (20 ML MDV) ONE (09:01)
--- NOTE | 2024-11-03 09:17 | P.PCN ---
Date of Procedure: 11/03/24 Procedure(s) Performed: BRIEF HISTORY: Patient is a 68-year-old pleasant white female scheduled for an elective colonoscopy as a part of screening for colon cancer. PROCEDURE PERFORMED: Colonoscopy. PREOPERATIVE DIAGNOSIS: Screening for colon cancer. IV sedation per Anesthesia. PROCEDURE: After informed consent was obtained, the patient, was brought into the endoscopy unit. IV sedation was administered by Anesthesia under continuous monitoring. Digital rectal examination was normal. Initially the Olympus CF-160 flexible video colonoscope was then inserted in the rectum, gradually advanced into the cecum without any difficulty. Careful examination was performed as the scope was gradually being withdrawn. Ileocecal valve and the appendiceal orifice were visualized and appeared normal. Prep was excellent. Mucosa of the cecum, ascending colon, transverse colon, descending colon, sigmoid colon, and rectum appeared normal. Scattered left-sided diverticula retroflexion was performed in the rectum and small internal hemorrhoids were seen. The patient tolerated the procedure well. IMPRESSION: Normal-appearing colon from rectum to cecum as of colorectal neoplasia. Scattered left-sided diverticulosis. Small internal hemorrhoids. RECOMMENDATIONS: Findings of this examination were discussed with the patient as well as the family. She was advised to have repeat screening colonoscopy in 10 years.
[2024-11-03 09:24] VITALS: BP 98/61; PULSE 80; RESP 14
== END 2024-11-03 09:59 | disposition home or self-care (01) ==
LOC: ORWHC2ENDO 07:10
PROVIDERS: ATTEND Internal Medicine Gastroenterology
DX: Z12.11 Encounter for screening for malignant neoplasm of colon (principal); K57.30 Diverticulosis of large intestine without perforation or abscess without bleeding; K64.8 Other hemorrhoids; K21.9 Gastro-esophageal reflux disease without esophagitis; J45.909 Unspecified asthma, uncomplicated; E66.01 Morbid (severe) obesity due to excess calories; Z79.899 Other long term (current) drug therapy; Z88.5 Allergy status to narcotic agent; Z88.2 Allergy status to sulfonamides; Z88.6 Allergy status to analgesic agent; Z88.0 Allergy status to penicillin; Z88.1 Allergy status to other antibiotic agents; Z90.49 Acquired absence of other specified parts of digestive tract; Z98.890 Other specified postprocedural states
CPT/HCPCS: J2003; J2704; G0121

== ENCOUNTER → 2025-02-10 | Outpatient (CLI) | payer MEDICARE ==
[2025-02-10 20:06] LABS: Codfish IgE 5.43 kU/L; Peanut IgE 0.12 kU/L; Shrimp IgE 0.1 kU/L
[2025-02-11 12:56] LABS: Almond IgE <0.10 kU/L (<0.10); Almond IgE Class CLASS 0; Crab IgE <0.10 kU/L (<0.10); Crab IgE Class CLASS 0; Lobster IgE <0.10 kU/L (<0.10); Lobster IgE Class CLASS 0; Salmon IgE 0.56 kU/L (<0.10); Salmon IgE Class CLASS 1
== END | disposition home or self-care (01) ==
LOC: LABWHC1 10:05
PROVIDERS: ATTEND Otolaryngology
DX: L50.0 Allergic urticaria (principal)
CPT/HCPCS: 36415; 86003